=== PATIENT | female | born 1980 | race African-American/Black ===

== ENCOUNTER 2024-12-26 05:40 | Day surgery (SDC) | payer BC ==
[2024-12-22 15:47] VITALS: BMI 25.5
[2024-12-26 06:37] VITALS: TEMP 97.3
[2024-12-26] MEDS ORDERED: DEXAMETHASONE SOD PHOSPHATE 4 MG/1 ML VIAL ONE (07:00)
[2024-12-26] MEDS ORDERED: LIDOCAINE HCL/PF 2% SDV 5ML VIAL ONE (07:00)
[2024-12-26] MEDS ORDERED: ONDANSETRON 4 MG/2 ML VIAL ONE (07:00)
[2024-12-26] MEDS ORDERED: KETOROLAC TROMETHAMINE 30 MG/1 ML VIAL ONE (07:00)
[2024-12-26] MEDS ORDERED: ceFAZolin SODIUM 1 GM VIAL ONE (07:00)
[2024-12-26] MEDS ORDERED: METOCLOPRAMIDE HCL INJECTION 10 MG/2 ML VIAL ONE (07:00)
[2024-12-26] MEDS ORDERED: ACETAMINOPHEN INJECTION 100 ML ONE (07:02)
[2024-12-26] MEDS ORDERED: SUCCINYLCHOLINE CHLORIDE 200 MG/10 ML SYRINGE ONE (07:06)
[2024-12-26] MEDS ORDERED: ROCURONIUM BROMIDE 50 MG/5 ML SYRINGE ONE (07:06)
[2024-12-26] MEDS ORDERED: PROPOFOL 20 ML ONE ×2 (07:06→08:17)
[2024-12-26] MEDS ORDERED: MIDAZOLAM HCL 2 MG/2 ML SINGLE DOSE VIAL ONE (07:08)
[2024-12-26] MEDS ORDERED: GLYCOPYRROLATE 0.2 MG/1 ML VIAL ONE (07:47)
[2024-12-26] MEDS ORDERED: LIDOCAINE 1%/EPI 1:100000 (20 ML MULTI DOSE VIAL) ONE (07:57)
[2024-12-26] MEDS ORDERED: INDOCYANINE GREEN 25 MG/10 ML VIAL IVPUSH ONE (07:57)
[2024-12-26] MEDS: ceFAZolin SODIUM 1 GM VIAL IVPB ONE (08:00)
[2024-12-26] MEDS ORDERED: HYDROmorphone HCl 2 MG/ML VIAL ONE (08:15)
[2024-12-26] MEDS ORDERED: oxyCODONE HCL 5 MG TABLET PO PRN (08:25)
[2024-12-26] MEDS ORDERED: PROMETHAZINE HCL 25 MG/1 ML VIAL IVPB PRN (08:25)
[2024-12-26] MEDS ORDERED: ROCURONIUM BROMIDE 50 MG/5 ML VIAL ONE (09:07)
[2024-12-26] MEDS ORDERED: SUGAMMADEX SODIUM 200 MG/2 ML VIAL ONE (10:06)
[2024-12-26] MEDS: LACTATED RINGERS SOLUTION 1,000 ML IV SCH (10:48)
[2024-12-26 12:47] VITALS: RESP 20
[2024-12-26] MEDS ORDERED: oxyCODONE HCL 5 MG TABLET ONE (13:07)
[2024-12-26] MEDS: oxyCODONE HCL 5 MG TABLET PO PRN (13:10)
[2024-12-26 13:20] VITALS: BP 120/66; PULSE 56
== END 2024-12-26 13:49 | disposition home or self-care (01) ==
LOC: JASU-SURG 05:40
PROVIDERS: ATTEND Obstetrics & Gynecology
PROC: 8E0W8CZ Robotic Assisted Procedure of Trunk Region, Via Natural or Artificial Opening Endoscopic (ICD-10-PCS; 2024-12-26)
PROC: 0UB28ZZ Excision of Bilateral Ovaries, Via Natural or Artificial Opening Endoscopic (ICD-10-PCS; principal; 2024-12-26 07:45)
DX: D27.0 Benign neoplasm of right ovary (principal); N73.6 Female pelvic peritoneal adhesions (postinfective); N83.202 Unspecified ovarian cyst, left side
CPT/HCPCS: 81025; 86850; 86900; 86901; 88305-TC; 88307-TC; 94760; J0131